=== PATIENT | female | born 1970 | race American Indian/Alaskan Native ===

== ENCOUNTER 2021-02-14 20:35 | Emergency (ER) | payer OTHER ==
[2021-02-14 22:25] VITALS: BP 168/96
--- NOTE | 2021-02-15 01:08 | Vascular Lab Report ---
DUPLEX DOPPLER LOWER EXTREMITY VEINS, BILATERAL INDICATION / CLINICAL INFORMATION: elevated d dimer, LLE pain and swelling. TECHNIQUE: Duplex doppler imaging was performed through the veins of both lower extremities using mehul ous compression and other maneuvers. COMPARISON: None available. FINDINGS: RIGHT COMMON FEMORAL VEIN: Negative. RIGHT FEMORAL VEIN: Negative. RIGHT POPLITEAL VEIN: Negative. RIGHT CALF VEINS: Negative. LEFT COMMON FEMORAL VEIN: Negative. LEFT FEMORAL VEIN: Negative. LEFT POPLITEAL VEIN: Negative. LEFT CALF VEINS: Negative. ADDITIONAL FINDINGS: None. IMPRESSION: 1. No sonographic evidence for DVT in either lower extremity. Signer Name: Chris Champagne MD Signed: 02/15/2021 1:04 AM Workstation Name: [id number]
== END 2021-02-15 06:05 | disposition left against medical advice (07) ==
LOC: ED 20:35
DX: M79.604 Pain in right leg (principal); Z53.21 Procedure and treatment not carried out due to patient leaving prior to being seen by health care provider
CPT/HCPCS: 93970